=== PATIENT | female | born 1985 | race Caucasian/White ===

== ENCOUNTER 2020-04-18 09:04 | Emergency (ER) | payer BC ==
--- NOTE | 2020-04-18 10:02 | EDM.PDOC ---
ED HPI GENERAL MEDICAL PROBLEM - General Chief Complaint: Skin Complaint Stated Complaint: SKIN COMPLAINT/L ARM Time Seen by Provider: 04/18/20 10:01 - History of Present Illness INITIAL COMMENTS - FREE TEXT/NARRATIVE: 34-year-old female presents the emergency room basically for second opinion on a biopsy site that is having some wound complications. A week ago today the patient had a punch biopsy done on her left upper arm l ateral aspect about midway between the shoulder and the elbow. From what the patient describes this was a punch biopsy that was closed using Steri-Strips and a clear dressing over the top. It sounds like they used silver nitrate or something similar on a stick that was brown to control bleeding. She is worried about some being stuck in the wound. But she has a lot of tenderness in the skin around the biopsy site. She has not had any fevers or chills. She is not doing much with this arm because of the discomfort Left Upper Arm Pain Score (Numeric/FACES): 7 - Related Data Allergies Allergy/AdvReac Type Severity Reaction Status Date / Time No Known Allergies Allergy Verified 04/18/20 09:19 Home Meds: Home Meds oxyCODONE 5 mg PO Q4HR PRN #20 tablet 12/01/13 [Rx] Gabapentin [Neurontin] 300 mg PO TID PRN 04/18/20 [History] Ondansetron [Ondansetron Odt] 4 mg PO TID PRN 04/18/20 [History] cephALEXin [Keflex] 500 mg PO BID 04/18/20 [History] Past Medical History [employer] History: Reports: - Past Surgical History Female Surgical History: Reports: LEEP Dermatological Surgical History: Reports: Skin Biopsy Social & Family History - Family History Family Medical History: Noncontributory - Tobacco Use Smoking Status *Q: Never Smoker Second Hand Smoke Exposure: No - Caffeine Use Caffeine Use: Reports: Coffee, Energy Drinks - Recreational Drug Use Recreational Drug Use: No ED ROS GENERAL - Review of Systems Review Of Systems: See Below Constitutional: Reports: No Symptoms Respiratory: Reports: No Symptoms Cardiovascular: Reports: No Symptoms GI/Abdominal: Reports: No Symptoms Neurological: Reports: No Symptoms ED EXAM, SKIN/RASH Exam: See Below Exam Limited By: No Limitations General Appearance: Alert, No Apparent Distress Respiratory/Chest: No Respiratory Distress, Lungs Clear, Normal Breath Sounds Cardiovascular: Regular Rate, Rhythm, No Edema, No Murmur Skin: Other (Examination of biopsy site shows red irritated skin at the margins of the adhesive and underneath the bandage where the adhesive was. It is very tender trying to get bandage material off due to the adhesive. As the wound sits open the redness gets better she has not started any blistering yet. She has an almost 1 cm round defect in the skin that has some dark scab-like material inside after the saline soaked iodoform gauze was removed. She does not have any purulent drainage. The skin in this area does not appear to be cellulitic and continues to improve with the dressing off and the iodoform gauze out of there.) Course - Vital Signs Last Recorded V/S: Last Vital Signs Temp 36.8 C 04/18/20 09:10 Pulse 81 04/18/20 09:10 Resp 20 04/18/20 09:10 BP 142/90 H 04/18/20 09:10 Pulse Ox 100 04/18/20 09:10 - Re-Assessments/Exams Free Text/Narrative Re-Assessment/Exam: 04/18/20 11:16 Patient is on a course of Keflex she has 1 more dose to take. I do not believe this is infected at this time the black material she was concerned about inside is being stuck in there today or told she had necrotic tissue and there was probably leftover debris from the silver nitrate what I am seeing in the wound at this point appears fairly normal. We will repack it with non-iodoform Nu Gauze in a wet-to-dry fashion with dry gauze over it we will not use any adhesive but a sleeve to hold the dressing in place. Patient is doing better with the prior dressing removed. The patient requested to use some saline to saturate the new gauze with before removing it I gladly did this. When I came back and remove it about 15 minutes had gone by and the redness around the wound had significantly improved. Also when I removed the iodoform gauze it looks like she continued to have further improvement. Departure - Departure Time of Disposition: 11:17 Disposition: Home, Self-Care 01 Clinical Impression: Visit for wound check Clinical Impression: (Ruled Out): Postoperative complication of skin involving drainage from surgical wound - Discharge Information Referrals: PCP,None [Primary Care Provider] - Forms: ED Department Discharge Additional Instructions: Return to the emergency room with any questions problems or worsening symptoms. I do not believe this is infected at this time but keep a close eye on it. Finish your Keflex, or cephalexin and then we will not continue any antibiotics at this point. It appears you have a irritation secondary to the adhesive on the dressings so we should avoid any adhesive to this area. Do the dressing changes as we discussed I would do this daily today and then twice daily starting tomorrow. Keep the area clean as best as he can however I do not believe you hiking around in [place] is going to cause further problems. If you experience any difficulty and feel you need to be seen seek help at 1 of the local walk-in clinics or emergency departments. Sepsis Event Note (ED) - Evaluation Sepsis Screening Result: No Definite Risk - Focused Exam Vital Signs: Vital Signs Temp Pulse Resp BP Pulse Ox 04/18/20 09:10 36.8 C 81 20 142/90 H 100
== END 2020-04-18 11:31 | disposition home or self-care (01) ==
LOC: JD.ED 09:04
DX: Z48.817 Encounter for surgical aftercare following surgery on the skin and subcutaneous tissue (principal)
CPT/HCPCS: 99282